=== PATIENT | male | born 1970 | race Caucasian/White ===

== ENCOUNTER 2016-08-12 18:28 | Emergency (ER) | payer OTHER ==
[~2016-08-12] VITALS: Ht 177.8 cm; Wt 90.7 kg
--- NOTE | 2016-08-12 19:00 | NUR ---
PT IS WANDERING AROUND THE ER, EDUCATED THAT HE MUST WAIT IN HIS BED. PT CONTINUES TO GET UP AND WALK AROUND. AMBULATORY WITH STEADY GAIT.
[2016-08-12] MEDS ORDERED: IV SET PRIMARY 1 EA INFUS.SET MC ONE (19:45)
[2016-08-12] MEDS ORDERED: LORAZEPAM INJ 2 MG/ML VIAL ONE (19:45)
[2016-08-12] MEDS ORDERED: IV NS 0.9% 1,000 ML ONE (19:45)
[2016-08-12] MEDS ORDERED: LORAZEPAM INJ 2 MG/ML VIAL IVP ONE (20:00)
[2016-08-12] MEDS ORDERED: IV NS 0.9% 1,000 ML BAG IV ONE (20:00)
[2016-08-12 20:10] LABS: BASOPHILS # (AUTO) 0.3 /CMM (0.0-0.2); BASOPHILS % (AUTO) 2.5 % (0.0-2.0); EOSINOPHILS # (AUTO) 0.1 /CMM (0.0-0.7); HEMATOCRIT 45 % (39-51); HEMOGLOBIN 14.9 g/dL (13.5-17.5); LYMPHOCYTES # (AUTO) 0.7 /CMM (0.8-4.8); MEAN CORPUSCULAR HEMOGLOBIN 28 PG (26.0-33.0); MEAN CORPUSCULAR HGB CONC 33 g/dl (31.0-36.0); MEAN CORPUSCULAR VOLUME 86 fL (80-96); MONOCYTES # (AUTO) 0.4 /CMM (0.1-1.30); MONOCYTES % (AUTO) 3.1 % (2.0-12.0); NEUTROPHILS # (AUTO) 10.6 /CMM (1.8-8.9); NEUTROPHILS % (AUTO) 87.4 % (43.0-81.0); PLATELET COUNT (AUTO) 182 /CMM (150-450); RDW COEFFICIENT OF VARIATION 13.3 (11.5-15.0); RED BLOOD CELL COUNT(AUTO) 5.27 MIL/uL (4.5-6.0); WHITE BLOOD COUNT (AUTO) 12.1 K/uL (4.3-11.0)
[2016-08-12 20:25] LABS: CREATININE 1.6 mg/dL (0.6-1.3); POTASSIUM 3.2 mmol/L (3.5-5.1)
[2016-08-12] MEDS ORDERED: POTASSIUM CHLORIDE 20 MEQ TAB.PRT.SR PO ONE ×2 (21:00)
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
--- NOTE | 2016-08-13 00:10 | NUR ---
PT RESTING COMFORTABLY, A/OX4, AMBULATORY WITH STEADY GAIT. PT STATES HE WANTS TO GO HOME. PT DOES NOT APPEAR INTOXICATED.
--- NOTE | 2016-08-13 01:52 | NUR ---
Patient discharged to home in stable condition. Written and verbal after care instructions given. Patient verbalizes understanding of instruction. IV removed. Catheter intact and site benign. Pressure and 4x4 applied to site. No bleeding noted. Ambulatory with a steady gait.
[2016-08-13 01:53] VITALS: BP 154/78
== END 2016-08-13 01:54 | disposition home or self-care (01) ==
LOC: ER 18:30
DX: F10.129 Alcohol abuse with intoxication, unspecified (principal); R51 Headache; E86.0 Dehydration; W19.XXXA Unspecified fall, initial encounter; Y93.89 Activity, other specified; Y92.89 Other specified places as the place of occurrence of the external cause; Y99.8 Other external cause status
CPT/HCPCS: 36415; 70450; 80048; 85025; 96361; 96374; 99285; A4606; G0480; J2060; J7030; Z7610

== ENCOUNTER 2016-09-27 19:54 | Emergency (ER) | payer OTHER ==
[~2016-09-27] VITALS: Ht 180.3 cm; Wt 113.4 kg
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
--- NOTE | 2016-09-27 19:58 | NUR ---
DR NICHOLAS AT BEDSIDE FOR EVAL.
--- NOTE | 2016-09-27 20:08 | NUR ---
Agustín sainz in [facility] - 09/27/16 at 2124 by PRIYANK LUMBER PILER OPERATOR AT BEDSIDE FOR SABINEAL.
--- NOTE | 2016-09-27 20:08 | NUR ---
THERMAL INTELLIGENCE ANALYST AT BEDSIDE FOR BLOOD DRAW.
[2016-09-27 20:12] LABS: MONOCYTES # (AUTO) 0.7 /CMM (0.1-1.30); MONOCYTES % (AUTO) 6.8 % (2.0-12.0)
[2016-09-27 20:23] LABS: BASOPHILS # (AUTO) 0.1 /CMM (0.0-0.2); EOSINOPHILS # (AUTO) 0.2 /CMM (0.0-0.7); EOSINOPHILS % (AUTO) 1.6 % (0.0-6.0); HEMATOCRIT 48 % (39-51); HEMOGLOBIN 16.8 g/dL (13.5-17.5); LYMPHOCYTES # (AUTO) 3.9 /CMM (0.8-4.8); LYMPHOCYTES % (AUTO) 39.6 % (20.0-44.0); MEAN CORPUSCULAR HEMOGLOBIN 31 PG (26.0-33.0); MEAN CORPUSCULAR HGB CONC 35 g/dl (31.0-36.0); MEAN CORPUSCULAR VOLUME 88 fL (80-96); PLATELET COUNT (AUTO) 306 /CMM (150-450); RDW COEFFICIENT OF VARIATION 12.9 (11.5-15.0); RED BLOOD CELL COUNT(AUTO) 5.42 MIL/uL (4.5-6.0); WHITE BLOOD COUNT (AUTO) 9.9 K/uL (4.3-11.0)
[2016-09-27 20:43] LABS: CALCIUM, SERUM 9.3 mg/dL (8.5-10.1); CREATININE 1.4 mg/dL (0.6-1.3); POTASSIUM 3.8 mmol/L (3.5-5.1)
[2016-09-27 20:59] LABS: EOSINOPHILS % (MANUAL) 3 % (0-4); LYMPHOCYTES % (MANUAL) 40 % (16-48); MONOCYTES % (MANUAL) 8 % (0-11.0); NEUTROPHILS % (MANUAL) 47 (42-76); REACTIVE LYMPHOCYTES 2 % (0-0)
[2016-09-27 21:15] LABS: PROTHROMBIN TIME > 100.0 SECS (9.5-12.7)
[2016-09-27 21:17] LABS: PARTIAL THROMBOPLASTIN TIME > 170 SEC (23-34)
[2016-09-27 21:18] LABS: INR > 10.00 (0.87-1.13)
[2016-09-27 21:37] LABS: INR 0.9 (0.87-1.13); PROTHROMBIN TIME 9.4 SECS (9.5-12.7)
[2016-09-27 21:54] LABS: ALBUMIN 4.6 g/dL (3.4-5.0); BILIRUBIN,DIRECT 0.2 mg/dL (0.0-0.2); BILIRUBIN,TOTAL 0.5 mg/dL (0.2-1.0); TOTAL PROTEIN, SERUM 7.9 g/dL (6.4-8.2)
--- NOTE | 2016-09-27 22:14 | NUR ---
PT IS AMBULATORY W/ STEADY GAIT. FRIEND IS GONNA TAKE PT HOME. STABLE VITALS. IVHL D/C.
[2016-09-27 22:16] VITALS: BP 142/84
== END 2016-09-27 22:17 | disposition home or self-care (01) ==
LOC: ER 19:55
DX: F10.129 Alcohol abuse with intoxication, unspecified (principal); F41.9 Anxiety disorder, unspecified; R51 Headache; R79.1 Abnormal coagulation profile
CPT/HCPCS: 36415; 70450; 80048; 80076; 80305; 85025; 85730 ×2; 99285; A4606; G0480; Z7610

== ENCOUNTER 2016-10-01 18:15 | Emergency (ER) | payer OTHER ==
[~2016-10-01] VITALS: Ht 188 cm; Wt 90.7 kg
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
--- NOTE | 2016-10-01 18:37 | NUR ---
PRUSHA AT BEDSIDE FOR EVAL.
--- NOTE | 2016-10-01 18:46 | NUR ---
PT TO RADIOLOGY FOR HEAD CT SCAN VIA [facility].
[2016-10-01] MEDS ORDERED: LORAZEPAM 1 MG TABLET ONE ×2 (18:48→20:05)
[2016-10-01] MEDS: LORAZEPAM 1 MG TABLET PO ONE ×2 (18:55→20:11)
[2016-10-01 19:09] LABS: BASOPHILS % (AUTO) 0.2 % (0.0-2.0); EOSINOPHILS % (AUTO) 0.3 % (0.0-6.0); HEMATOCRIT 43 % (39-51); HEMOGLOBIN 14.2 g/dL (13.5-17.5); LYMPHOCYTES # (AUTO) 0.5 /CMM (0.8-4.8); LYMPHOCYTES % (AUTO) 4.2 % (20.0-44.0); MEAN CORPUSCULAR HEMOGLOBIN 29 PG (26.0-33.0); MEAN CORPUSCULAR HGB CONC 33 g/dl (31.0-36.0); MEAN CORPUSCULAR VOLUME 89 fL (80-96); MONOCYTES # (AUTO) 0.4 /CMM (0.1-1.30); MONOCYTES % (AUTO) 3.6 % (2.0-12.0); NEUTROPHILS % (AUTO) 91.7 % (43.0-81.0); PLATELET COUNT (AUTO) 205 /CMM (150-450); RDW COEFFICIENT OF VARIATION 13.1 (11.5-15.0); RED BLOOD CELL COUNT(AUTO) 4.82 MIL/uL (4.5-6.0); WHITE BLOOD COUNT (AUTO) 11.9 K/uL (4.3-11.0)
[2016-10-01 19:19] LABS: CALCIUM, SERUM 8.2 mg/dL (8.5-10.1); CARBON DIOXIDE 19 mmol/L (21-32); CHLORIDE 91 mmol/L (98-107); CREATININE 1.2 mg/dL (0.6-1.3); GLUCOSE 88 mg/dL (74-106); POTASSIUM 4.1 mmol/L (3.5-5.1); SODIUM SERUM 130 mmol/L (136-145); UREA NITROGEN, BLOOD 14 mg/dL (7-18)
[2016-10-01 19:25] LABS: ACETAMINOPHEN < 10 ug/ml (10-30); ALANINE AMINOTRANSFERASE 209 U/L (12-78); ALBUMIN 4.5 g/dL (3.4-5.0); ALCOHOL, BLOOD 289 mg/dL (0-0); ALKALINE PHOSPHATASE 77 U/L (46-116); ASPARTATE AMINOTRANSFERASE 272 U/L (15-37); BILIRUBIN,DIRECT 0.3 mg/dL (0.0-0.2); BILIRUBIN,TOTAL 0.8 mg/dL (0.2-1.0); SALICYLATE 1.1 mg/dL (2.8-20.0); TOTAL PROTEIN, SERUM 7.7 g/dL (6.4-8.2)
[2016-10-01] MEDS ORDERED: IV NS 0.9% 1,000 ML ONE (19:49)
[2016-10-01] MEDS ORDERED: IV SET PRIMARY 1 EA INFUS.SET MC ONE (19:49)
[2016-10-01] MEDS: IV NS 0.9% 1,000 ML BAG IV ONE (19:56)
[2016-10-01] MEDS ORDERED: ACETAMINOPHEN ES 500 MG TABLET ONE (20:59)
[2016-10-01] MEDS: ACETAMINOPHEN ES 500 MG TABLET PO ONE (21:03)
--- NOTE | 2016-10-01 21:35 | NUR ---
PT IS AAOX3. AMBULATORY W. STEADY GAIT. WANS TO GO HOME. P'S FRIEND WILL PICK HIM AT. D/C HOME IN SABLE CONDITION.
[2016-10-01 21:38] VITALS: BP 146/84
== END 2016-10-01 21:39 | disposition home or self-care (01) ==
LOC: ER 18:17
DX: F10.129 Alcohol abuse with intoxication, unspecified (principal); F41.9 Anxiety disorder, unspecified; R51 Headache
CPT/HCPCS: 36415; 70450-TC; 80048-TC; 80076-TC; 85025-TC; A4606; G0480; J7030; Z7610

== ENCOUNTER 2021-01-14 06:25 | Emergency (ER) | payer OTHER ==
[~2021-01-14] VITALS: Ht 190.5 cm; Wt 113.4 kg
[2021-01-14 06:30] VITALS: BP 170/101
== END 2021-01-14 06:52 | disposition home or self-care (01) ==
LOC: ER 06:30
DX: S00.531A Contusion of lip, initial encounter (principal); I10 Essential (primary) hypertension; F41.9 Anxiety disorder, unspecified; F10.10 Alcohol abuse, uncomplicated; Y90.9 Presence of alcohol in blood, level not specified; Z60.2 Problems related to living alone; W18.39XA Other fall on same level, initial encounter; Y93.89 Activity, other specified; Y92.89 Other specified places as the place of occurrence of the external cause; Y99.8 Other external cause status

== ENCOUNTER → 2021-03-31 | Emergency (ER) | payer OTHER ==
[~2021-03-31] VITALS: Ht 190.5 cm; Wt 117.9 kg
[~2021-03-31] MED LIST: BACI30OI9 TP; IBUP-1955 PO
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
[2021-03-31 21:51] LABS: BASOPHILS % (AUTO) 0.4 % (0.0-2.0); EOSINOPHILS % (AUTO) 0.1 % (0.0-6.0); HEMATOCRIT 47 % (39-51); HEMOGLOBIN 16.2 g/dL (13.5-17.5); LYMPHOCYTES # (AUTO) 0.7 K/uL (0.8-4.8); LYMPHOCYTES % (AUTO) 8.8 % (20.0-44.0); MEAN CORPUSCULAR HGB CONC 34 g/dl (31.0-36.0); MEAN CORPUSCULAR VOLUME 88 fL (80-96); MONOCYTES # (AUTO) 0.5 K/uL (0.1-1.30); NEUTROPHILS # (AUTO) 7.1 K/uL (1.8-8.9); NEUTROPHILS % (AUTO) 84.7 % (43.0-81.0); PLATELET COUNT (AUTO) 260 K/uL (150-450); RED BLOOD CELL COUNT(AUTO) 5.38 MIL/uL (4.5-6.0); WHITE BLOOD COUNT (AUTO) 8.4 K/uL (4.3-11.0)
[2021-03-31 22:00] LABS: CALCIUM, SERUM 8.4 mg/dL (8.5-10.1); CARBON DIOXIDE 20 mmol/L (21-32); CHLORIDE 96 mmol/L (98-107); CREATININE 1.4 mg/dL (0.6-1.3); GLUCOSE 118 mg/dL (74-106); POTASSIUM 3.4 mmol/L (3.5-5.1); SODIUM SERUM 137 mmol/L (136-145); UREA NITROGEN, BLOOD 19 mg/dL (7-18)
[2021-03-31 22:06] LABS: ALANINE AMINOTRANSFERASE 105 U/L (12-78); ALBUMIN 4.4 g/dL (3.4-5.0); ALCOHOL, BLOOD 315 mg/dL (0-0); ALKALINE PHOSPHATASE 64 U/L (46-116); ASPARTATE AMINOTRANSFERASE 122 U/L (15-37); BILIRUBIN,DIRECT 0.2 mg/dL (0.0-0.2); BILIRUBIN,TOTAL 0.5 mg/dL (0.2-1.0); TOTAL PROTEIN, SERUM 8.2 g/dL (6.4-8.2)
[2021-03-31 22:09] LABS: ACETAMINOPHEN < 0 ug/ml (10-30)
[2021-03-31] MEDS: IV NS 0.9% 1,000 ML BAG IV ONE (22:21)
[2021-03-31 23:39] LABS: BILIRUBIN,URINE NEGATIVE (NEGATIVE); COLOR,URINE YELLOW (YELLOW); LEUKOCYTE ESTERASE ,URINE NEGATIVE (NEGATIVE); NITRITE, URINE NEGATIVE (NEGATIVE); PH,URINE 5.5 (5.0-8.0); PROTEIN,URINE 100 mg/dl (NEGATIVE); UGLUCOSE NEGATIVE (NEGATIVE); UROBILINOGEN,URINE 0.2 EU/dL (0.2)
[2021-03-31 23:40] VITALS: BP 131/91
--- NOTE | 2021-03-31 23:41 | NUR ---
Patient discharged to home in stable condition. Written and verbal after care instructions given. Patient verbalizes understanding of instruction.IV removed. Catheter intact and site benign. Pressure and 4x4 applied to site. No bleeding noted.
[2021-04-01 00:31] LABS: BACTERIA,URINE Few /HPF (None Seen); RBC,URINE 0-2 /HPF (0-2); SQUAMOUS EPITHELIAL CELL,UR Few /HPF (None Seen); WBC,URINE 0-2 /HPF (0-3)
== END | disposition home or self-care (01) ==
LOC: ER 20:46
DX: S00.11XA Contusion of right eyelid and periocular area, initial encounter (principal); S60.511A Abrasion of right hand, initial encounter; F10.129 Alcohol abuse with intoxication, unspecified; N17.9 Acute kidney failure, unspecified; M25.561 Pain in right knee; M25.562 Pain in left knee; I10 Essential (primary) hypertension; F41.9 Anxiety disorder, unspecified; Z60.2 Problems related to living alone; W18.39XA Other fall on same level, initial encounter; Y93.01 Activity, walking, marching and hiking; Y92.89 Other specified places as the place of occurrence of the external cause; Y99.8 Other external cause status; Y90.8 Blood alcohol level of 240 mg/100 ml or more
CPT/HCPCS: 36415; 70450; 70486; 72125; 73130; 73564 ×2; 80048; 80076; 80143; 80307; 80320; 81001; 84484; 85025; 93005; 96360; 99285; J7030; G0480

== ENCOUNTER 2021-04-07 15:07 | Emergency (ER) | payer OTHER ==
[~2021-04-07] VITALS: Ht 190.5 cm; Wt 116.6 kg
[~2021-04-07 15:07] MED LIST changes: -IBUP-1955 PO
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
--- NOTE | 2021-04-07 17:25 | NUR ---
Patient discharged to home in stable condition. Written and verbal after care instructions given. Patient verbalizes understanding of instruction. PT ambulatory with a steady gait
[2021-04-07 17:26] VITALS: BP 176/85
== END 2021-04-07 17:26 | disposition home or self-care (01) ==
LOC: ER 15:17
DX: F10.10 Alcohol abuse, uncomplicated (principal); I10 Essential (primary) hypertension; F41.9 Anxiety disorder, unspecified; Z60.2 Problems related to living alone; Y90.9 Presence of alcohol in blood, level not specified

== ENCOUNTER 2021-04-13 15:49 | Emergency (ER) | payer OTHER ==
[~2021-04-13] VITALS: Ht 190.5 cm; Wt 117.9 kg
--- NOTE | 2021-04-13 15:53 | NUR ---
TO ER BED 10, FROM HOME C/O HEADACHE S/P FALL, WANNA GET CHECKED OUT TO MAKE SURE EVERYTHING IS OKAY, AAOX3, BREATHING EVEN AND NON LABORED, SEEN BY
--- NOTE | 2021-04-13 16:35 | NUR ---
BACK FROM CT
--- NOTE | 2021-04-13 20:30 | NUR ---
PT IS AMBULATORY ON STEADY GAIT. VERNALIZED THAT HE IS FEELING BETTER. PT ALSO WAS PROVIDED WITH WATER.
--- NOTE | 2021-04-13 20:45 | NUR ---
Patient discharged to home in stable condition. Written and verbal after care instructions given. Patient verbalizes understanding of instruction. Pt ambulatory with a steady gait
[2021-04-13 23:22] VITALS: BP 132/64
== END 2021-04-13 23:22 | disposition home or self-care (01) ==
LOC: ER 15:54
DX: S00.83XA Contusion of other part of head, initial encounter (principal); S00.12XA Contusion of left eyelid and periocular area, initial encounter; S80.02XA Contusion of left knee, initial encounter; F10.129 Alcohol abuse with intoxication, unspecified; I10 Essential (primary) hypertension; F41.9 Anxiety disorder, unspecified; Z60.2 Problems related to living alone; W17.89XA Other fall from one level to another, initial encounter; Y93.89 Activity, other specified; Y92.89 Other specified places as the place of occurrence of the external cause; Y99.8 Other external cause status; Y90.9 Presence of alcohol in blood, level not specified
CPT/HCPCS: 70450-TC; 70486-TC; 72125-TC

== ENCOUNTER 2021-04-25 20:30 | Emergency (ER) | payer OTHER ==
[~2021-04-25] VITALS: Ht 190.5 cm; Wt 111.1 kg
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
[2021-04-25] MEDS ORDERED: IV LR 1000 ML 1,000 ML IV ONE (21:00)
--- NOTE | 2021-04-25 21:00 | NUR ---
LAC #18G S/L PATENT AND INTACT. BLOOD & URINE COLLECTED AND SENT TO LAB.
--- NOTE | 2021-04-25 21:21 | NUR ---
PT TAKEN TO CT VIA [facility]
[2021-04-25 21:23] LABS: BASOPHILS % (AUTO) 0.7 % (0.0-2.0); EOSINOPHILS % (AUTO) 0.3 % (0.0-6.0); HEMATOCRIT 39 % (39-51); HEMOGLOBIN 13.5 g/dL (13.5-17.5); LYMPHOCYTES # (AUTO) 0.3 K/uL (0.8-4.8); LYMPHOCYTES % (AUTO) 10.4 % (20.0-44.0); MEAN CORPUSCULAR HGB CONC 34 g/dl (31.0-36.0); MEAN CORPUSCULAR VOLUME 89 fL (80-96); MONOCYTES # (AUTO) 0.4 K/uL (0.1-1.30); MONOCYTES % (AUTO) 11.7 % (2.0-12.0); NEUTROPHILS # (AUTO) 2.3 K/uL (1.8-8.9); NEUTROPHILS % (AUTO) 76.9 % (43.0-81.0); PLATELET COUNT (AUTO) 133 K/uL (150-450); RED BLOOD CELL COUNT(AUTO) 4.44 MIL/uL (4.5-6.0)
[2021-04-25 21:37] LABS: CALCIUM, SERUM 9.1 mg/dL (8.5-10.1); CREATININE 1.3 mg/dL (0.6-1.3); POTASSIUM 4.3 mmol/L (3.5-5.1)
[2021-04-25 21:44] LABS: ALBUMIN 3.8 g/dL (3.4-5.0); BILIRUBIN,DIRECT 0.7 mg/dL (0.0-0.2); BILIRUBIN,TOTAL 1.2 mg/dL (0.2-1.0); TOTAL PROTEIN, SERUM 7.7 g/dL (6.4-8.2)
--- NOTE | 2021-04-25 21:44 | NUR ---
BROUGHT BACK FROM CT.
--- NOTE | 2021-04-25 21:45 | NUR ---
PT WAS BACK FROM CT, HE ATTEMPTED TO STAND UP WHILE STAKING TECHNICIAN WAS PUSHING THE BED. PT TOLD TO REMAIN IN BED.
--- NOTE | 2021-04-25 21:58 | NUR ---
PT STOOD OUT OF BED, AMBULATED THROUGH THE HALLWAY. PT ESCORTED BACK TO THE BED WITH ASSITANCE.
--- NOTE | 2021-04-25 22:43 | NUR ---
OFFERED PT DRINKS & FOOD; TOLERATING WELL, DENIES N/V/D
--- NOTE | 2021-04-25 23:17 | NUR ---
PT CONTINUES TO TAKE OFF BP CUFF AND PULSE OX.
--- NOTE | 2021-04-25 23:27 | NUR ---
PT STOOD UP, ATTEMPTED TO WALK. PT REDIRECTED TO BED.
--- NOTE | 2021-04-25 23:50 | NUR ---
Pt continues to be undirectible. Removing monitor and attempting to remove iv. Continues to attpempt to get out of bed depsite reorientation . Received for for restraint by Dr Rosado. Restraints safely applied.
--- NOTE | 2021-04-26 01:12 | NUR ---
RESTRAINTS TAKEN OFF PT. NO ACUTE DISTRESS NOTED. PT REMAINS ON MONITOR AND PULSE OX.
--- NOTE | 2021-04-26 03:45 | NUR ---
PT ASLEEP, VSS.
[2021-04-26] MEDS ORDERED: LORAZEPAM 1 MG TABLET ONE (05:36)
--- NOTE | 2021-04-26 05:43 | NUR ---
PT REMAINS IN BED. PROVIDED WITH BLANKET.
[2021-04-26] MEDS ORDERED: LORAZEPAM 1 MG TABLET PO ONE (06:00)
--- NOTE | 2021-04-26 07:35 | NUR ---
IV removed. Catheter intact and site benign. Pressure and 4x4 applied to site. No bleeding noted.Patient discharged to home in stable condition. Written and verbal after care instructions given. Patient verbalizes understanding of instruction.
[2021-04-26 08:15] VITALS: BP 128/76
== END 2021-04-26 08:16 | disposition home or self-care (01) ==
LOC: ER 20:35
DX: S05.12XA Contusion of eyeball and orbital tissues, left eye, initial encounter (principal); S05.11XA Contusion of eyeball and orbital tissues, right eye, initial encounter; S80.212A Abrasion, left knee, initial encounter; S80.211A Abrasion, right knee, initial encounter; F10.129 Alcohol abuse with intoxication, unspecified; I10 Essential (primary) hypertension; F41.9 Anxiety disorder, unspecified; Z60.2 Problems related to living alone; W19.XXXA Unspecified fall, initial encounter; Y93.89 Activity, other specified; Y92.89 Other specified places as the place of occurrence of the external cause; Y99.8 Other external cause status; Y90.8 Blood alcohol level of 240 mg/100 ml or more
CPT/HCPCS: 36415; 70450; 70486; 80048; 80076; 80307; 80320; 85025; 85730; 96360; 99285; J7120; G0480